=== PATIENT | female | born 1955 | race Caucasian/White ===

== ENCOUNTER 2018-11-09 18:31 | Day surgery (SDC) | payer SELFPAY ==
[~2018-11-09] VITALS: Ht 160 cm; Wt 73.5 kg
[2018-11-09 17:49] VITALS: BP 150/82
[2018-11-09 18:01] LABS: PLATELET COUNT, AUTOMATED 275 K/uL (150-450)
[~2018-11-09 18:31] MED LIST: CALC-515 PO; DEXAMETHASONE SOD PHOS 10MG/ML ONE; FAMOTIDINE(*) 20MG/50ML PREMIX 50 ML IVPB ONE; GENTAMICIN(*) 80 MG/2 ML VIAL 160 MG in NS(*) 0.9% 100 ML BAG 100 ML IVPB ONE; GENTAMICIN/NS 80 MG/100 ML PB 100 ML IVPB ONE; LIDOCAINE MPF 1% 5 ML VIAL ONE; NORMOSOL R SOLN(*) 1000 ML BAG 1,000 ML IV ONE; NS(*) 0.9% 1000 ML BAG 1,000 ML IV PRN; ONDANSETRON 4 MG/2 ML VIAL IVP PRN; ONDANSETRON 4 MG/2 ML VIAL ONE; PROPOFOL EMUL(*) 10MG/ML 20 ML 20 ML ONE; PROPOFOL EMUL(*) 10MG/ML 20 ML 40 ML ONE; fentaNYL CITR 100 MCG/2 ML AMP ONE
[2018-11-09] MEDS ORDERED: IOPAMIDOL-200 50 ML VIAL IS ONE (18:42)
[2018-11-09] MEDS ORDERED: KETOROLAC 15 MG/ML VIAL ONE (19:43)
[2018-11-09] MEDS ORDERED: IBUP-1671 PO (19:51)
[2018-11-09] MEDS ORDERED: FAMO20TA28 PO (19:51)
[2018-11-09] MEDS ORDERED: ACET-3017 PO (19:52)
[2018-11-09] MEDS ORDERED: CIPR-344 PO (19:53)
[2018-11-09 19:58] VITALS: BP 133/79
[2018-11-09 20:00] VITALS: BP 141/66
--- NOTE | 2018-11-09 20:27 | RADIOLOGY IMAGING REPORT ---
FACILITY: [facility] [place] PATIENT NAME: Catherine Vaughan : 1955 MR: [id number] V: [id number] EXAM DATE: ORDERING PHYSICIAN: REMEDIOS CALDERA TECHNOLOGIST: Location: [facility] Patient: Catherine Vaughan : 1955 Visit/Account:[id number] Date of Sevice: 11/09/2018 Retrograde ureterogram, 5 images. HISTORY: Ureteral stent placement. COMPARISON: None. The images lack side markers. Several images demonstrate an oval-shaped calcific density probably rep resenting a stone in the region of the ureteropelvic junction. Other images demonstrate a guidewire a nd catheter projecting on the renal pelvis. Contrast is present in a mildly dilated intrarenal collec ting system and ureter. Other images demonstrate the superior end of a ureteral stent projecting on t he renal pelvis. The inferior end of the stent projects on the urinary bladder. FLUOROSCOPY TIME: 0.6 minutes. IMPRESSION: Placement of ureteral stent. Report Dictated By: Fady Sales MD at 11/09/2018 8:19 PM Report E-Signed By: Fady Sales MD at 11/09/2018 8:23 PM WSN:[id number]
--- NOTE | 2018-11-09 21:06 | NUR ---
1950- PATIENT TRANSFERRED TO PHASE 2, ALERT AND ORIENTED. CLOTHES FROM ROOM 268 FOR DC. 1999- PATIENT VOIDED, AMBULATED SAFELY. DRESSED. FRIEND TO PACU FOR INSTRUCTIONS. VERBALIZED UNDERSTANDING NOT TO DRIVE AND TO HAVE FRIEND OR GRAND DAUGHTER STAY THE NIGHT WITH HER. OK WITH PLAN. 2029- PATIENT DISCHARGED TO CARE OF FRIEND, AMBULATED TO CAR.
--- NOTE | 2018-11-10 07:03 | EKG ---
FACILITY: [facility] - [place] PATIENT NAME: BRADEN DUMONT : [id number] MR: [id number] V: [id number] EXAM DATE: ORDERING PHYSICIAN: REMEDIOS CALDERA TECHNOLOGIST: Test Reason : Pre-op Blood Pressure : / mmHG Vent. Rate : 106 BPM Atrial Rate : 106 BPM P-R Int : 140 ms QRS Dur : 082 ms QT Int : 346 ms P-R-T Axes : 050 038 025 degrees QTc Int : 459 ms Sinus tachycardia Nonspecific ST abnormality Abnormal ECG No previous ECGs available Confirmed by Josh Marin ([id number]) on 11/10/2018 10:09:56 PM Referred By: Confirmed By:Josh Walsh
--- NOTE | 2018-11-20 04:33 | OPERATIVE REPORT 1 ---
EVENT DATE: November 09, 2018 SURGEON: Oziel Chavez MD ANESTHESIOLOGIST: Abdoul Andres MD ANESTHESIA: General. PREOPERATIVE DIAGNOSES 1. Left ureterolithiasis. 2. Severe left ureterorenal colic and nausea and vomiting. POSTOPERATIVE DIAGNOSES 1. Left ureterolithiasis. 2. Severe left ureterorenal colic and nausea and vomiting. PROCEDURE PERFORMED 1. Cystourethroscopy. 2. Ureteral pyelograms. 3. Possible manipulation of stone into the left renal pelvis. 4. Left ureteral stent placement, indwelling, 6-English x 26 cm Percuflex Plus. DESCRIPTION OF PROCEDURE Under general anesthetic, the patient was prepped and draped in the extended lithotomy position. The 21 panendoscope admitted through the urethra into the bladder. Urine was obtained for urinalysis, culture and sensitivity. Let ureteral pyelograms were obtained and showed the left upper ureteral stone. The access catheter was placed, and then the guidewire, and then the 6-English x 26 cm Percuflex Plus. The stone was fairly difficult to manipulate and advance the catheter, but it was accomplished satisfactorily. There was a good hydronephrotic drip of raine-tinged urine, copious. Bladder was drained. Scope was withdrawn. This is a 54-year-old white female referred from the [facility] with a complaint of left ureterolithiasis with associated high-grade obstruction, ureterorenal colic, nausea and vomiting. She subsequently had treatment; see operative note for details. Patient will be ready for discharge home when alert and functional, to force fluids, 12 glasses of water per day. Activities are as tolerated. She is strain all her urine. She was sent home with strainers, and a copy of instructions was given to the patient. She is to continue her usual medications. Patient was discharged home on Cipro, Pepcid, Pyridium, Motrin, and Tylenol No. 3 therapy. MTDD
== END 2018-11-09 19:50 | disposition home or self-care (01) ==
LOC: OR 18:31 → EDSTATUS 18:31 → OR 19:50
DX: N22 Calculus of urinary tract in diseases classified elsewhere (principal); R11.2 Nausea with vomiting, unspecified; R00.0 Tachycardia, unspecified
CPT/HCPCS: 36415; 52330; 74420; 85025; 87088; 93005; C1758; C1769; C1894; C2617; J1100; J1885; J2001; J2405; J2704; J3010; Q9966; 82310; 82374; 82435; 82565; 82947; 84132; 84295; 84520

== ENCOUNTER 2018-11-19 02:30 | Day surgery (SDC) | payer SELFPAY ==
[~2018-11-19] VITALS: Ht 160 cm; Wt 71.7 kg
[~2018-11-19 02:30] MED LIST changes: +ACET-3017 PO; +CIPR-344 PO; -DEXAMETHASONE SOD PHOS 10MG/ML ONE; +FAMO20TA28 PO; -FAMOTIDINE(*) 20MG/50ML PREMIX 50 ML IVPB ONE; -GENTAMICIN(*) 80 MG/2 ML VIAL 160 MG in NS(*) 0.9% 100 ML BAG 100 ML IVPB ONE; -GENTAMICIN/NS 80 MG/100 ML PB 100 ML IVPB ONE; +IBUP-1671 PO; -LIDOCAINE MPF 1% 5 ML VIAL ONE; -NORMOSOL R SOLN(*) 1000 ML BAG 1,000 ML IV ONE; -NS(*) 0.9% 1000 ML BAG 1,000 ML IV PRN; -ONDANSETRON 4 MG/2 ML VIAL IVP PRN; -ONDANSETRON 4 MG/2 ML VIAL ONE; -PROPOFOL EMUL(*) 10MG/ML 20 ML 20 ML ONE; -PROPOFOL EMUL(*) 10MG/ML 20 ML 40 ML ONE; -fentaNYL CITR 100 MCG/2 ML AMP ONE
[2018-11-19] MEDS ORDERED: fentaNYL CITR 100 MCG/2 ML AMP ONE (11:58)
[2018-11-19] MEDS ORDERED: LIDOCAINE MPF 1% 5 ML VIAL ONE (11:59)
[2018-11-19] MEDS ORDERED: PROPOFOL EMUL(*) 10MG/ML 20 ML 80 ML ONE (11:59)
[2018-11-19] MEDS ORDERED: ONDANSETRON 4 MG/2 ML VIAL ONE (11:59)
[2018-11-19] MEDS ORDERED: DEXAMETHASONE SOD PHOS 10MG/ML ONE (11:59)
[2018-11-19 12:00] VITALS: BP 136/70
[2018-11-19] MEDS ORDERED: FAMOTIDINE 20 MG TAB PO ONE (12:15)
[2018-11-19] MEDS ORDERED: LIDOCAINE/SOD BICARB 8.4% SYR ID ONE (12:35)
[2018-11-19] MEDS ORDERED: NORMOSOL R SOLN(*) 1000 ML BAG 1,000 ML IV PRN (12:35)
[2018-11-19] MEDS ORDERED: MIDAZOLAM 2 MG/2 ML VIAL IVP PRN (12:35)
[2018-11-19] MEDS ORDERED: GENTAMICIN(*) 80 MG/2 ML VIAL 160 MG in NS(*) 0.9% 100 ML BAG 100 ML IVPB ONE (12:35)
[2018-11-19] MEDS ORDERED: IOPAMIDOL-200 50 ML VIAL IS ONE ×2 (13:02→13:45)
[2018-11-19] MEDS ORDERED: WATER FOR IRRIG,STERILE 3000ML IR ONE (13:41)
--- NOTE | 2018-11-19 14:04 | RADIOLOGY IMAGING REPORT ---
FACILITY: [facility] PATIENT NAME: Catherine Vaughan : 1955 MR: [id number] V: [id number] EXAM DATE: ORDERING PHYSICIAN: REMEDIOS CALDERA TECHNOLOGIST: Location: [facility] Patient: Catherine Vaughan : 1955 Visit/Account:[id number] Date of Sevice: 11/15/2018 Exam type: KUB SINGLE VIEW ABDOMEN History: KIDNEY STONES Comparison: November 09, 2018. Findings: Bowel gas pattern is nonspecific. There is a left ureteral stent in place. There is 1.5 x 0.7 cm ov oid calculus projecting over the lower pole the left kidney. Several other tiny calcifications proje ct over the lower pole of the left kidney as well. IMPRESSION: 1. Left ureteral stent in place Left-sided nephrolithiasis Report Dictated By: Ursula Grayson MD at 11/19/2018 1:59 PM Report E-Signed By: Ursula Grayson MD at 11/19/2018 2:00 PM WSN:[id number]
[2018-11-19] MEDS ORDERED: PROPOFOL EMUL(*) 10MG/ML 20 ML 20 ML ONE (14:33)
[2018-11-19] MEDS ORDERED: SULF-198 PO (15:19)
--- NOTE | 2018-11-19 15:36 | RADIOLOGY IMAGING REPORT ---
FACILITY: [facility] - [place] PATIENT NAME: Catherine Vaughan : 1955 MR: [id number] V: [id number] EXAM DATE: ORDERING PHYSICIAN: REMEDIOS CALDERA TECHNOLOGIST: Location: [facility] [place] Patient: Catherine Vaughan : 1955 Visit/Account:[id number] Date of Sevice: 11/19/2018 Study: C-ARM FLUORO 1 HR Indication: Intraoperative fluoroscopy Findings:Intraoperative spot films of the abdomen demonstrates the presence of a left ureteral stent. There is a large calculus overlying the left kidney. A fluoroscopy exposure of 0.78 mGy cumulative air kerma was recorded. IMPRESSION: Intraoperative spot films. Report Dictated By: Omid Busby at 11/19/2018 3:31 PM Report E-Signed By: Omid Busby at 11/19/2018 3:32 PM WSN:[id number]
[2018-11-19 15:52] VITALS: BP 104/78
[2018-11-19 15:54] VITALS: BP 119/74
--- NOTE | 2018-11-19 16:02 | NUR ---
PT. ABLE TO DRESS WITHOUT ISSUES. UP TO RESTROOM. STRAINING URINE.
--- NOTE | 2018-11-20 04:11 | OPERATIVE REPORT 1 ---
EVENT DATE: November 19, 2018 SURGEON: Oziel Chavez MD ANESTHESIOLOGIST: Abdoul Andres MD ANESTHESIA: General. PREOPERATIVE DIAGNOSIS Left ureterorenal lithiasis. POSTOPERATIVE DIAGNOSIS Left ureterorenal lithiasis. PROCEDURE PERFORMED 1. Cystourethroscopy. 2. Removal of internal stent. 3. Left ureterorenoscopy and manipulation of left renal stone into left renal pelvis. 4. Left ureteral stent placement, external. 5. Left extracorporeal shockwave lithotripsy, one stone, 3000 shocks. DESCRIPTION OF PROCEDURE Under general anesthetic, the patient was prepped and draped in a standard lithotomy position. The 21 panendoscope admitted through the urethra into the bladder. No stones were visible in the bladder. The external stent was visible and was grasped and removed. Again, no stones were visible in the bladder. The left ureterorenoscope, semi-rigid, was passed up to the urethra into the bladder and up the left ureter without any difficulty. The stone was in the upper portion of the left ureter and was manipulated into the left renal pelvis. No other stones were demonstrable in the ureter. An external stent, 6 whistle tip, was placed and secured to the Alfonso. The patient was transferred to the stone treatment unit. After positioning, the stone was treated with a total of 3000 shocks progressing from low to high kV fairly slowly. The stone appeared to disintegrate early in the treatment. External stent and Alfonso were removed at conclusion of procedure. Patient tolerated the procedure satisfactorily and returned to the recovery room in satisfactory condition. This is a 64-year-old white female complaining of left ureterolithiasis with associated severe left ureterorenal colic, nausea and vomiting. She subsequently had a stent placed a little over a week ago and rapidly improved,and relieved her acute ureterorenal colic. Patient was then followed up for evaluation and treatment; that has been accomplished. See operative note for details. Patient will be ready for discharge home when alert and functional, to force fluids, 12 glasses of water per day. Activities are as tolerated. Plan followup on 23 November 2018. She is to call for an appointment. Patient was sent home with a strainer. She is to strain all her urine. Patient is to percuss her left kidney frequently to facilitate passage of stone particles. Copy of instructions for renal percussion were given to the patient. Patient is to continue her usual medications, and a copy of the instructions were given to the patient. MTDD
== END 2018-11-19 15:45 | disposition home or self-care (01) ==
LOC: OR 02:30
DX: N20.2 Calculus of kidney with calculus of ureter (principal)
CPT/HCPCS: 50590; 52332; 74018; 76000; 87088; A4338; C1758; C1894; J1100; J2001; J2405; J2704; J3010; Q9966